=== PATIENT | male | born 1945 | race Caucasian/White ===

== ENCOUNTER → 2017-04-27 | Day surgery (SDC) | payer MEDICARE ==
[~2017-04-27] VITALS: Ht 175.3 cm; Wt 77.1 kg
[~2017-04-27] MED LIST: AFRIN SINUS NASAL; ATEN50TA PO; ATOR20TA PO; CHOL100043 PO; FLUT9.9S NS; OMEG1CAP56 PO; OMEP20CA11 PO; Sodium Chloride LOK Flush 10 mL Syringe IV PRN; UBID100C16 PO; [UNRECOGNIZED DRUG - REMARK] PO; fentaNYL-PF 50 mCg/mL 2 mL Inj IVPUSH PRN
[2017-04-27 14:14] VITALS: BP 119/81; PULSE 60; RESP 16; O2SAT 98
[2017-04-27] MEDS: 0.9% Sodium Chloride 1,000 ML IV PRN ×3 (14:23→15:34)
[2017-04-27 15:42] VITALS: BP 113/71; PULSE 72; RESP 12; O2SAT 91
[2017-04-27 15:43] VITALS: BP 105/68; PULSE 58; RESP 12; O2SAT 91
[2017-04-27 15:51] VITALS: BP 109/73; PULSE 55; RESP 12; O2SAT 94
--- NOTE | 2017-04-28 00:49 | ENDO ---
[address] [address] ENDOSCOPY PROCEDURE PATIENT: EDUARDO BORREGO : 1945 MR#: [id number] ADMIT: 04/27/2017 JOB ID: [id number] PRIMARY PROVIDER: MARY Leonard PROCEDURE: Esophagogastroduodenoscopy with biopsies. INDICATIONS: A 71-year-old male recently seen in the clinic back in the spring for some vomiting. All of that has resolved. Bowels are working just fine. He, however, has an indication for Trejo's screening based on 5-6 years of intermittent reflux. Symptoms are generally under control at this point with PPI. EQUIPMENT: GIF-H180-J. SEDATION: 3 mg Versed, 75 mcg fentanyl. COMPLICATIONS: None identified. PROCEDURE INFORMATION: After the risks and benefits were explained, written and verbal informed consent was obtained. The patient was brought into the endoscopy suite and placed into the left lateral decubitus position. Sedation was achieved as above. The scope introduced into the mouth through the bite block, and advanced to the second portion of the duodenum. The scope was slowly withdrawn to carefully examine the mucosa for any defects or lesions. Retroflexed views were accomplished in the stomach. The stomach was decompressed, the scope removed from the patient who tolerated the procedure well. FINDINGS: 1. Duodenum: No pathology identified from the bulb through to the second portion. 2. Stomach: No outlet obstruction. No ulcers. No mass lesions. However, there did seem to be an extra gastric pressure effect along the greater curvature. The stomach did not fully distend out as a consequence. This did not look like a mucosal lesion. There were a couple of benign-appearing polyps in the stomach and a couple of these were sampled for histopathologic analysis. Pushing on this area with forceps felt reasonably soft. Otherwise, retroflexed views of the LES were unremarkable. 3. Esophagus: The diaphragmatic pinchcock was at approximately 40 and the GE junction at about 36 cm from the incisors. The patient had a noncircumferential extension of the squamocolumnar junction up into the distal esophagus by perhaps up to about 2 cm. This gave the appearance of C0M2 Trejo's. A couple of biopsies were therefore acquired for histopathologic analysis. There were no acute erosive changes and no other pathology throughout the esophagus. ENDOSCOPIC DIAGNOSES: 1. Short-segment Trejo's. 2. Moderate hiatal hernia. 3. Gastric polyps. 4. Unusual configuration of mid to proximal stomach (? extra intestinal colonic pressure effects, splenic pressure effects or submucosal pathology). RECOMMENDATIONS: 1. Await histopathology. 2. If Trejo's is confirmed, repeat EGD in nine months as long as there are no dysplastic features. 3. Continue anti-reflux therapy. 4. Continue bowel regimen. 5. It would be very reasonable to have a look at the area in the proximal stomach with endoscopic ultrasound for further clarification here (I discussed the case by telephone with Dr. Ruano. In reviewing the CAT scan, the gastric lumen is certainly not distended and it is difficult to determine whether there is any true mucosal thickening on the scan as a consequence.
--- NOTE | 2017-04-29 15:52 | PATH ---
SURGICAL PATHOLOGY Attending Physician:Naseem Wade CASE STATUS: Signed Out PATIENT NAME: EDUARDO BORREGO PID: [id number] : 1945 DATE COLLECTED:04/27/2017 00:00 SPECIMEN: 1: Stomach, Polyp, Biopsy 2: Esophagus, Biopsy CLINICAL HISTORY: 1). GASTRIC POLYP BIOPSY, RULE OUT H.PYLORI 2). DISTAL ESOPHAGUS BIOPSY FINAL DIAGNOSIS: 1. Stomach, Polyp, Biopsy: Portion of fundic gland polyp x1; negative for dysplasia and malignancy. Portion of gastric body-type mucosa with no diagnostic abnormality. No definite H. pylori organisms identified by H&E stain. Immunohistochemistry studies pending; results will be reported as an addendum. Negative for intestinal metaplasia, dysplasia and malignancy. 2. Distal Esophagus, Biopsy: Squamocolumnar junctional mucosa with involvement by intestinal metaplasia/Trejo's metaplasia. Negative for dysplasia and malignancy. ICD10: K22.7 GROSS DESCRIPTION: The specimen is received in two formalin filled containers labeled with the patient's name. 1). The specimen is labeled "gastric polyp" and consists of 2 portions of tissue which aggregate to 0.3 x 0.3 x 0.2 CM. The specimen is entirely submitted in cassette 1A. 2). The specimen is labeled "distal esophagus" and consists of 3 tiny portions of tissue which aggregate to 0.2 x 0.2 x 0.2 CM. The specimen is entirely submitted in cassette 2A. 04/28/2017DC ICD-9 CODES: CPT CODES: 1: 55935, 43902 2: 47490 PROCEDURE/ADDENDA: Addendum SPI Addendum Diagnosis An immunohistochemical stain is performed on the gastric biopsy to evaluate for Helicobacter organisms and is negative. A control stain shows appropriate reactivity. Addendum Comment * This test was developed and its performance characteristics determined by [facility]. It has not been cleared or approved by the U.[place]. Food and Drug Administration. The FDA has determined that such clearance or approval is not necessary. This test is used for clinical purposes. It should not be regarded as investigational or for research. Electronically Signed Out Nik Long MD, Ph.D. Electronically Signed Out Carol Snowden MD [facility] [address] [place] [address] Division, [place] [address] Technical component performed at [facility], [address], [place], [address]
== END | disposition home or self-care (01) ==
LOC: END 00:31
PROVIDERS: ATTEND Internal Medicine Gastroenterology
DX: K22.70 Barrett's esophagus without dysplasia (principal); K31.7 Polyp of stomach and duodenum; K44.9 Diaphragmatic hernia without obstruction or gangrene; K21.9 Gastro-esophageal reflux disease without esophagitis; I10 Essential (primary) hypertension; E78.5 Hyperlipidemia, unspecified
CPT/HCPCS: 43239; G0500; J2250; J3010; J7030